=== PATIENT | male | born 1970 | race Caucasian/White ===

== ENCOUNTER 2019-03-15 11:02 | Emergency (ER) | payer MEDICAID, SELFPAY ==
[2019-03-15 11:04] VITALS: BP 142/70; PULSE 58; RESP 20; TEMP 36; O2SAT 100; BMI 28.7
--- NOTE | 2019-03-15 11:10 | CT_ITS ---
STUDY: CT BRAIN WITHOUT CONTRAST REASON FOR EXAM: Male, 49 years old. Headaches. Blurred vision. RADIATION DOSAGE (If Supplied By Facility): CTDIvol = ( 44.99 ) mGy, DLP = ( 897.35 ) mGycm TECHNIQUE: Transaxial CT imaging of the brain was performed without administration of intravenous contrast material. Individualized dose optimization techniques were used for this CT. COMPARISON: No relevant priors. FINDINGS: Normal soft tissue structures. Normal calvarium. Normal size ventricles and extra-axial spaces for the patient's age. Normal white matter tracts of the cerebral hemispheres. Normal basal ganglia and thalami. Normal brainstem. Normal cerebellum. There is no intracranial hemorrhage. There are no findings of an acute ischemic infarction. Mild degree of mucosal thickening of the ethmoid sinuses bilaterally. CT/Brain/Head without Contrast IMPRESSION: Normal unenhanced CT scan of the brain. N.B. : The above information has been verbally conveyed by Yung Sterling to Wade Mejia on 03/15/2019 11:32:05 (ET). Electronically Signed: Yung Sterling, at 11:33 EDT , Service support ,
--- NOTE | 2019-03-15 11:13 | CT_ITS ---
STUDY: CTA HEAD AND NECK WITH CONTRAST REASON FOR EXAM: Male, 49 years old. Headaches. Blurred vision. RADIATION DOSAGE (If Supplied By Facility): CTDIvol = ( 22.71 ) mGy, DLP = ( 674.66 ) mGycm TECHNIQUE: CT angiography was performed with a multi-detector CT scanner. Data acquisition was obtained from the skull base through the vertex following intravenous administration of 100 IV Isovue 370. MIP images were reconstructed from the axial data set. Post-processing of the angiographic images was performed, with multiplanar reformation and 3D reconstruction. Individualized dose optimization techniques were used for this CT. COMPARISON: No relevant priors. FINDINGS: Normal bilateral petrous carotid arteries. Normal right cavernous carotid artery with a normal supraclinoid bifurcation. Normal left cavernous carotid artery with a normal supraclinoid bifurcation. Normal right A1 segments of the anterior cerebral artery. Normal left A1 segments of the anterior cerebral artery. Normal intact anterior communicating artery (ACOM). Normal bilateral A2 segments of the anterior cerebral arteries. Normal right M1 and M2 segments of the middle cerebral arteries, with a normal M1 bifurcation. Normal left M1 and M2 segments of the middle cerebral arteries, with a normal M1 bifurcation. Normal right posterior communicating artery (PCOM). Normal left posterior communicating artery (PCOM). Normal bilateral vertebral arteries. Normal basilar artery with a normal basilar bifurcation. The visualized bilateral superior cerebellar (SCA) arteries are normal. Normal bilateral P1, P2 and visualized P3 segments of the posterior cerebral arteries. There is no demonstrated aneurysm of the [place] of [place]. There is no demonstrated abnormality of the visualized brain. AORTIC ARCH: Normal visualized aortic arch. Normal origins of the brachiocephalic, left common carotid, and left subclavian arteries. RIGHT CAROTID ARTERIES: Normal right common carotid artery (CCA). Normal right common carotid bulb. Normal origin of the right internal carotid (ICA) artery without a hemodynamically significant stenosis. Normal visualized cervical portion of the right internal carotid artery. Normal origin of the right external carotid artery (ECA). LEFT CAROTID ARTERIES: Normal left common carotid artery (CCA). Normal left common carotid bulb. Normal origin of the left internal carotid (ICA) artery without a hemodynamically significant stenosis. Normal visualized cervical portion of the left internal carotid artery. Normal origin of the left external carotid artery (ECA). VERTEBRAL ARTERIES: Normal bilateral vertebral arteries. CT/CTA Head AND Neck W/ Contrast IMPRESSION: Normal CTA Head and neck with contrast. Electronically Signed: Yung Sterling, at 12:29 EDT , Service support ,
[2019-03-15 11:33] LABS: Absolute Lymphocyte Count 2.33 X10^3/uL (0.83-4.51); Absolute Neutrophil Count 5.2 X10^3/uL (2.0-7.7); Basophil# 0.04 X10^3/uL; Basophil% 0.5 % (0-1); Eosinophil# 0.18 X10^3/uL; Eosinophils% 2.2 % (0-5); Hematocrit 49.9 % (40-54); Hemoglobin 16.7 g/dL (13.0-16.5); Lymphocyte # 2.33 X10^3/ul (4.0); Lymphocyte % 28.1 % (19-41); Mean Corp Hgb Conc 33.5 g/dL (32-36); Mean Corpuscular Hgb 29.9 pg (27.0-32.0); Mean Corpuscular Volume 89.4 fL (80-94); Mean Platelet Vol. 9.6 fl (6.2-12.0); Monocyte# 0.51 X10^3/uL; Monocyte% 6.1 % (0-10); NRBC Flagged by Analyzer 0 % (0-5); Neutrophil # 5.21 X10^3/uL (2.7-7.7); Neutrophil % 62.7 % (47-70); Platelet Count 272 K/mm3 (150-450); RBC Distribution Width CV 14.3 % (11.6-14.6); RBC Distribution Width SD 46.8 fl (35.1-43.9); Red Blood Count 5.58 M/mm3 (4.6-6.2); White Blood Count 8.3 K/mm3 (4.4-11.0)
[2019-03-15] MEDS: 0.9% Normal Saline 1,000 ML 1000 ML IV (11:34)
[2019-03-15] MEDS: DiphenhydrAMINE 50 MG/ML Syringe 25 MG IV (11:35)
[2019-03-15 11:37] LABS: Anion Gap 5 (5-15); BUN 17 mg/dL (7-18); BUN/Creat Ratio 17.1 RATIO (10-20); Calcium,Total 9.2 mg/dL (8.5-10.1); Chloride 107 mmol/L (98-107); EST Glomerular Filtration Rate 85 mL/min (>60); Est Glom Filt Rate - Afr Amer 103 mL/min (>60); Estimated Creatinine Clearance 92.26 ml/min; Glucose 83 mg/dL (74-106); Potassium 4.4 mmol/L (3.5-5.1); Sodium Level 139 mmol/L (136-145)
[2019-03-15] MEDS: Ketorolac 15 MG/ML Vial IV (11:38)
[2019-03-15] MEDS: Metoclopramide 10 MG/2 ML Vial IV (11:39)
--- NOTE | 2019-03-15 11:52 | ED.DCSUM_ITS ---
History of Present Illness Chief Complaint: Headache Narrative: Patient presenting for evaluation secondary to a headache. Patient has no real medical history, denies any recent infections or head injuries. Patient states when he woke up at about 6:00 this morning he noticed that he had a severe headache. It is a frontal headache that is continuous and aching. He reports that he has some blurred vision with this. 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 He denies any numbness or weakness. No exacerbating relieving factors with this. Past Medical History - Allergies and Home Meds Allergies/Adverse Reactions: Allergies No Known Allergies Allergy (Verified 03/15/19 11:06) Past Medical History: - - Left eye blindness Smoking Status: Current every day smoker Review of Systems All systems negative except as indicated Eyes: Reports: Blurred vision - right Neurological: Reports: Headache Physical Exam Vital Signs/Narrative: Vital Signs Temp Pulse Resp BP Pulse Ox 03/15/19 11:04 96.8 F L 58 L 20 H 142/70 H 100 General: Well nourished, Well developed, - - Visibly uncomfortable secondary to pain Head: NC, AT. Negative for: Tenderness, Temporary Artery Tenderness Eyes: Perrl, EOMI ENT: Moist mucous membranes, No rhinorrhea Neck: Supple, No Lymphadenopathy, No JVD, Nontender, No Meningismus Cardiovascular: Regular rate, Regular rhythm, No murmurs Respiratory: No distress, CTA bilaterally, Chest nontender Abdomen: Soft, Nontender, Nondistended, Normal bowel sounds Back: Nontender, Normal Inspection Extremities: Nontender, No edema Skin: Normal color, No rash Neuro: Alert, Oriented x3, Cranial nerves II-XII grossly intact, Normal Strength, Normal Sensation, Normal DTR, Normal Gait Psychological: Normal affect Diagnostic/Tx/Re-eval - Medical Decision Making Patient presented for evaluation secondary to headache. He came in within 6 hours of onset. He was complaining of it being rather severe and concern for the possibility of intracranial hemorrhage or other pathology, so the patient wa s taken immediately to CT scan where a CT head and CT angiogram head and neck were performed. These were found to be negative. Patient had a laboratory work-up that was also found to be negative. Patient was given Reglan Benadryl and Toradol. Observation in the emergency department for 2 hours showed the patient to have complete resolution of his headache. I considered the possibility of subarachnoid hemorrhage as the patient was complaining of such as severe headache, but he came in within 6 hours of onset and sensitivity of noncontrasted CT is almost 100%, and he also has no aneurysms on CT angiogram. Likewise I do not feel that he would have resolution of his headache with medications if it was indeed a bleed. Potentially this could be either migrainous in nature versus a cluster headache, but it seems relatively typical for cluster as it was bilateral. Regardless, the patient has had complete resolution and I believe he is safe and appropriate for discharge. I had a discussion with his that should he redevelop severe headaches, confusion, or neurologic symptoms that he should be brought immediately back to the emergency department. Patient was discharged. Disposition: Home ED Disposition - Plan for ED Patient: Disposition: Home or Assisted Living Diagnosis: Headache Instructions: HEADACHE, Unspecified Referrals: Care Physician,No Primary [Primary Care Provider] - Oracio Whiteside MD [NON-STAFF] -
[2019-03-15 13:37] VITALS: BP 121/74; PULSE 55; RESP 17; O2SAT 98; O2SAT 99
== END 2019-03-15 13:41 | disposition home or self-care (01) ==
PROVIDERS: Emergency Provider Emergency Medicine
DX: R51 Headache (principal); F17.200 Nicotine dependence, unspecified, uncomplicated; H54.62 Unqualified visual loss, left eye, normal vision right eye
CPT/HCPCS: 70450; 70496; 70498; 80048; 85025; 99283; J7030; Q9967; A4216